=== PATIENT | female | born 1985 | race Caucasian/White ===

== ENCOUNTER 2018-08-09 09:48 | Outpatient (CLI) | payer BC ==
--- NOTE | 2018-08-09 11:29 | MRI ---
LUMBAR SPINE MRI WITHOUT IV CONTRAT: Date: 08/09/18 HISTORY: Low back pain with radiculopathy, M54.17, weakness of left leg. FINDINGS: There appear to be several small T2 low attenuation nodule foci within the gallbladder, worrisome for gallstones. In addition, there is a very large mass incompletely seen in the soft tissue pelvis, which measures a pproximately 8 x 10 cm. This mass is heterogenous in signal characteristics and appears to contain a large component of fat and may well represent a large cystic dermoid or teratoma. This is somewhat di splacing the uterus posteriorly. There is some free fluid in the cul-de-sac. Further evaluation with gynecological consultation in this regard is recommended. T12-L1: Unremarkable. L1-L2: Unremarkable. L2-L3: Unremarkable. L3-L4: Unremarkable. L4-L5: Unremarkable. L5-S1: Desiccation changes with a small focal protrusion and annular fissure, without significant as sociated stenosis. No significant abnormal marrow signal. IMPRESSION: 1. Large anterior pelvic mass with features suggesting that of a large dermoid. Gynecological consul tation is recommended. If there is felt to be a need for additional imaging in this regard, a follow- up pelvic MRI with and without IV contrast is recommended. 2. Minimal associated free cul-de-sac fluid. 3. Evidence for probable gallstones. In this regard, a follow-up gallbladder ultrasound might be con sidered. 4. Disc desiccation changes at L5-S1 with mild posterior protrusion changes and small annular fissur e, but without significant associated stenosis. POS: [facility]
== END 2018-08-09 09:49 | disposition home or self-care (01) ==
LOC: TBSIIMAG 09:48
PROVIDERS: ATTEND Family Medicine
DX: M51.16 Intervertebral disc disorders with radiculopathy, lumbar region (principal); M62.81 Muscle weakness (generalized); R19.00 Intra-abdominal and pelvic swelling, mass and lump, unspecified site
CPT/HCPCS: 72148

== ENCOUNTER 2018-09-04 05:11 | Outpatient (CLI) | payer BC ==
[2018-09-04 17:26] LABS: Hemoglobin 12.3 g/dL (12.0-16.0); Mean Corpuscular HGB CONC 32.9 g/dL (32.0-36.0); Mean Corpuscular Hemoglobin 30.1 pg (27.0-31.0); Mean Corpuscular Volume 91.5 fL (78.0-98.0); Mean Platelet Volume 8.6 fL (7.4-10.4); Platelet Count 246 thou/uL (130-400); RBC Distribution Width 12.5 % (11.5-14.5); Red Blood Cell (RBC) Count 4.09 mill/uL (4.20-5.40); White Blood Cell (WBC) Count 6.6 thou/uL (4.8-10.8)
[2018-09-04 17:33] LABS: BHCG - Serum Negative (NEGATIVE); Pregs Control Background? CLEAR/WHITE (CLR/WHITE); Pregs Control Bar Appear? YES (CONTROL BAR)
== END 2018-09-04 05:12 | disposition home or self-care (01) ==
LOC: LABBT 05:11
PROVIDERS: ATTEND Obstetrics & Gynecology
DX: Z01.812 Encounter for preprocedural laboratory examination (principal); N83.202 Unspecified ovarian cyst, left side
CPT/HCPCS: 84703; 85027; 86850; 86900; 86901

== ENCOUNTER 2018-09-09 08:05 | Day surgery (SDC) | payer BC ==
[2018-09-04 16:31] VITALS: BMI 23.3
--- NOTE | 2018-09-05 12:51 | HP ---
She is scheduled for outpatient surgery procedure on 09/09. HISTORY OF PRESENT ILLNESS: Ms. Hoang is a 32-year-old white female, G2, P2, history of PCOS, who was referred by her PCP for findings of a 12 cm left adnexal mass seen on recent MRI evaluation for lower back pain. She has been reporting pelvic bloating and discomfort over the past few months. She has a menstrual cycle every three months in regard to her PCOS. She uses condoms for contraception and she is up-to-date with her Pap smear screening. 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 Uterus and right adnexa appeared normal. There was no abnormal peritoneal fluid or adenopathy seen. PAST MEDICAL HISTORY: As noted the PCOS. PAST SURGICAL HISTORY: Third molar extraction. FAMILY HISTORY: Hyperlipidemia and breast cancer of a maternal grandmother. OB HISTORY: Two prior spontaneous vaginal deliveries. SOCIAL HISTORY: She is a nonsmoker. No excessive alcohol use. ALLERGIES: NO KNOWN DRUG ALLERGIES. PHYSICAL EXAMINATION: VITAL SIGNS: The patient's height 5 feet 6 inches, weight 146 pounds, and BMI 23.6. Blood pressure 112/62 and O2 saturations are 99% on room air. HEENT: Within normal limits. CHEST: Clear to auscultation. HEART: Regular rate and rhythm. S1 and S2 heart sounds. No murmurs, rubs, or gallops. ABDOMEN: Soft and nontender with palpable midline suprapubic mass 4 cm below the umbilicus noted. There is no palpable hernia. 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 PLAN: Plan is to proceed with robotic assisted laparoscopic salpingo-oophorectomy. It will need removal with an Warner O Aces bag via GelPOINT. Plan for discharge for day surgery procedure. Risks and benefits of procedure were discussed in detail. She is set for surgery on September 09. Job ID: [id number]
[2018-09-09] MEDS ORDERED: Famotidine/PF 20 mg/2ml Vial ONE (08:41)
[2018-09-09] MEDS ORDERED: CeleCOXIB 100 MG CAP ONE (08:41)
[2018-09-09] MEDS ORDERED: Gabapentin 300 MG CAP ONE (08:41)
[2018-09-09] MEDS ORDERED: Bupivacaine HCl 0.5%/Epinephrine 1:200,000/PF 30 ml Vial ONE (09:45)
[2018-09-09] MEDS ORDERED: Fentanyl 100 MCG/2 ML VIAL ONE (09:45)
--- NOTE | 2018-09-09 12:51 | OP ---
DATE OF PROCEDURE: 09/09/2018 PREOPERATIVE DIAGNOSES: A 32-year-old white female, G2, P2, with a 12 cm left adnexal mass consistent with mature cystic teratoma on MRI. POSTOPERATIVE DIAGNOSES: A 32-year-old white female, G2, P2, with a 12 cm left adnexal mass consistent with mature cystic teratoma on MRI. PROCEDURES PERFORMED: Robotic assisted left salpingo-oophorectomy with lysis of adhesions. ALUM PLANT OPERATOR SURGEON: Lashae Olsen PA-C ANESTHESIA: General endotracheal. ESTIMATED BLOOD LOSS: Less than 25 mL. COMPLICATIONS: None. COUNTS: Correct x2. ANTIBIOTICS: 2 g Ancef, on-call to OR. FINDINGS: 1. Large left mature cystic teratoma overlying the uterus in the midline of the pelvis with a reactionary filmy adhesions noted surrounding the mass status post adhesiolysis. 2. Normal-appearing right ovary, fallopian tube, and uterus. 3. Contents of the adnexal cyst consistent with sebum and hair confirming a mature cystic teratoma. DISPOSITION: Recovery room and then plan for discharge home from Day Stay. DESCRIPTION OF PROCEDURE: The patient previously received informed consent in regard to surgery. She was taken back to the operating room, where she received the general endotracheal anesthetic agent without complications. She was placed in dorsal lithotomy position with the use of Feroz stirrups and prepped and draped in usual sterile fashion. Porter catheter was placed at this time and a side-arm speculum was placed in vagina. Anterior lip of cervix was grasped with single-tooth tenaculum and a Hulka uterine manipulator was placed. Tenaculum and speculum were then removed. Attention was then turned to the abdomen, where perspective trocar sites were infiltrated 0.5% Marcaine with epinephrine. A 12 mm supraumbilical incision was made. Veress needle entered into the peritoneal cavity. The patient pressure noted to be less than 5 mm. Abdomen was insufflated with the patient's pressure of 15 approximately 5 L of carbon dioxide gas. Veress needle was then removed. A size 12 mm trocar was then placed through the incision site and the robotic laparoscope was introduced through the trocar sleeve confirming proper entry. Additional bilateral lower quadrant 8 mm trocar sleeves were placed under laparoscopic guidance along with the right upper quadrant 11 mm port. The patient was placed in deep Trendelenburg position. Then, the robot was docked in usual fashion. Prior to this, a small GelPOINT was placed in the umbilical incision area along with a folded medium-sized Aces bag up in the left upper quadrant of the patient. Once the robot was docked, I proceeded to carry out the procedure from the operative console while my insurance sales assistant was remained at the bedside. The dermoid was surrounded by numerous filmy adhesions from the omentum and colon and with an atraumatic grasper insurance sales assistant port by my insurance sales assistant, and using a bipolar fenestrated dissection and monopolar scissors, we were able to dissect and break up the filmy adhesions, mobilizing the left adnexal mass. We were then able to isolate the left infundibulopelvic ligament, which was noted to have two turns consistent of previous torsion. Good blood flow though was noted to the mature cystic teratoma. The location of the left ureter was noted to be inferior to the IP ligament and then this allowed us to secure the blood supply to the adnexal mass by cauterizing the IP ligament hugging close to the ovarian specimen and then transecting this. This allowed for further dissection of the anterior filmy adhesions on the anterior abdominal wall under direct visualization and peeling this off and mobilizing the structure more also posteriorly, it had been dissected free from the rectum atraumatically. Once the hemostasis had been secured and it was released and freed from the uterus and pelvis, the previously folded accordion was tied. Aces bag was then brought down into the pelvis underneath the specimen. I then cut the stay sutures of the silk, which allowed for opening of the Aces bag. Me and my insurance sales assistant then placed the dermoid inside the Aces bag and the previous tight loop with the drawstring was pulled through securing the specimen inside the Aces bag. My insurance sales assistant then grabbed the drawstring of the Aces bag and pulled it through the GelPOINT in the umbilical incision site. I then removed the silk ties and those were also placed in the bag. I then broke scrub. We undocked the robot. The Aces bag was then delivered through the small Warner O retractor that was placed with the GelPOINT and then the specimen was secured with the bag outside the abdomen. We then removed the small Warner O retractor and put it within the Aces bag to protect this while we would morcellate and remove the mature cystic teratoma. We made an incision in the large cyst. Copious sebum was suctioned, deflating the size of the cyst. Then, we removed the solid portions of the cyst including the massive amount of hair with both scissors and with Aly clamps. Then, the majority of the cyst had been removed. The Aces bag was then pulled through the abdominal incision. The small Warner O retractor was removed. The bag was then intact. The area was irrigated over the fascia and then the fascia was closed in the umbilical defect with a running 0 Vicryl suture securing fascial closure. The remainder of the trocar sites were closed with 4-0 Monocryl and Dermabond. The patient was awakened from anesthesia and transferred to recovery room in stable condition. Job ID: [id number]
== END 2018-09-09 14:10 | disposition home or self-care (01) ==
LOC: SDC 08:05
PROVIDERS: ATTEND Obstetrics & Gynecology
PROC: 0UB14ZZ Excision of Left Ovary, Percutaneous Endoscopic Approach (ICD-10-PCS; principal; 2018-09-09)
DX: D27.1 Benign neoplasm of left ovary (principal); N83.8 Other noninflammatory disorders of ovary, fallopian tube and broad ligament; K66.0 Peritoneal adhesions (postprocedural) (postinfection); E28.2 Polycystic ovarian syndrome
CPT/HCPCS: 88307; J0131; J0670; J0690; J3010; S0028

== ENCOUNTER 2022-11-16 11:44 | Outpatient (CLI) | payer BC | END 2022-11-16 11:45 | disposition home or self-care (01) | LOC: RAD 11:44 | PROVIDERS: ATTEND Family Medicine | DX: M79.672 Pain in left foot (principal) ==